=== PATIENT | female | born 1975 | race Two or more races ===

== ENCOUNTER → 2016-12-07 | Outpatient (CLI) | payer BC ==
--- NOTE | 2016-12-07 15:10 | US ---
EXAMINATION TYPE: US transvaginal DATE OF EXAM: 12/07/2016 3:00 PM COMPARISON: NONE CLINICAL HISTORY: N91.2 Amenorrhea. TECHNIQUE: Transvaginal (TV) Date of LMP: May 2016 TECHNOLOGIST IMPRESSION: 1. Uterus: Anteverted IUD visualized 2. Endometrium: wnl 3. Right Ovary: unable to visualized due to overlying bowel gas 4. Left Ovary: unable to visualized due to overlying bowel gas 5. Bilateral Adnexa: wnl 6. Posterior cul-de-sac: wnl IMPRESSION: 1. NORMAL PELVIC ULTRASOUND. 2. IUCD IN PLACE IN GOOD POSITION.
== END | disposition home or self-care (01) ==
LOC: RADUSWWP 14:31
PROVIDERS: ATTEND Obstetrics & Gynecology
DX: N91.2 Amenorrhea, unspecified (principal); Z97.5 Presence of (intrauterine) contraceptive device
CPT/HCPCS: 76830

== ENCOUNTER → 2018-05-08 | Outpatient (CLI) | payer BC ==
--- NOTE | 2018-05-15 16:48 | MM ---
Reason for exam: screening (asymptomatic). History: Family history of breast cancer in mother at age 67 and breast cancer in paternal grandmother. Patient had an excisional biopsy in 1990 right breast benign. MG 3D Screening Mammo W/Cad Bilateral CC and MLO view(s) were taken. Technologist: RT Giuliana (R)(M) The breast tissue is heterogeneously dense. This may lower the sensitivity of mammography. Bilateral multiple circumscribed masses compatible with a benign pattern. No significant changes when compared with prior studies. ASSESSMENT: Benign, BI-RAD 2 RECOMMENDATION: Routine screening mammogram of both breasts in 1 year.
== END | disposition home or self-care (01) ==
LOC: RADMAMWWP 14:24
PROVIDERS: ATTEND Family Medicine
DX: Z12.31 Encounter for screening mammogram for malignant neoplasm of breast (principal)
CPT/HCPCS: 77063; 77067

== ENCOUNTER → 2020-06-10 | Outpatient (CLI) | payer SELFPAY ==
--- NOTE | 2020-06-13 09:16 | MM ---
Reason for exam: screening (asymptomatic). Last mammogram was performed 2 years and 1 month ago. History: Patient is postmenopausal. Family history of breast cancer in mother at age 67 and breast cancer in paternal grandmother. Benign excisional biopsy of the right breast. Physical Findings: A clinical breast exam by your physician is recommended on an annual basis and results should be correlated with mammographic findings. MG 3D Screening Mammo W/Cad Bilateral CC and MLO view(s) were taken. Prior study comparison: May 08, 2018, bilateral MG 3d screening mammo w/cad. February 11, 2017, mammogram. January 18, 2017, mammogram. The breast tissue is heterogeneously dense. This may lower the sensitivity of mammography. Finding: There is a 20 mm circumscribed round mass located 6-7 cm from the nipple in the upper outer quadrant, posterior position of the right breast on MLO 24/58 and CC 26/55. There is a chronic nodularity in the right breast. There is no discrete abnormality. New finding and increase in size since May 08, 2018, February 11, 2017, and January 18, 2017. ASSESSMENT: Incomplete: need additional imaging evaluation, BI-RAD 0 RECOMMENDATION: Ultrasound of the right breast. [facility] will attempt to contact patient to return for ultrasound.
== END | disposition home or self-care (01) ==
LOC: RADMAMWWP 10:43
PROVIDERS: ATTEND Family Medicine
DX: Z12.31 Encounter for screening mammogram for malignant neoplasm of breast (principal)
CPT/HCPCS: 77063; 77067

== ENCOUNTER → 2020-06-27 | Outpatient (CLI) | payer SELFPAY ==
--- NOTE | 2020-06-27 08:37 | USB ---
Reason for exam: additional evaluation requested from abnormal screening. History: Patient is postmenopausal. Family history of breast cancer in mother at age 67 and breast cancer in paternal grandmother. Benign excisional biopsy of the right breast. Physical Findings: Nurse did not find any significant physical abnormalities on exam. US Breast Workup Limited RT Right limited breast ultrasound including focal area of concern, retroareolar and axilla demonstrates a 11 x 4mm oval, cystic lesion at 10 o'clock, a 17 x 6 x 20mm oval, cystic lesion at 10 o'clock and a 8mm oval lymph node at the axilla tail. These results were verbally communicated with the patient and result sheet given to the patient on 06/27/20. ASSESSMENT: Benign, BI-RAD 2 RECOMMENDATION: Return to routine screening mammogram schedule for both breasts.
== END | disposition home or self-care (01) ==
LOC: RADUSWWP 07:31
PROVIDERS: ATTEND Family Medicine
DX: R92.8 Other abnormal and inconclusive findings on diagnostic imaging of breast (principal)

== ENCOUNTER → 2022-04-04 | Outpatient (CLI) | payer BC ==
--- NOTE | 2022-04-05 08:56 | MM ---
Reason for Exam: Screening (asymptomatic). Last mammogram was performed 1 year(s) and 10 month(s) ago. Patient History: Menarche at age 12. First Full-Term at age 22. Postmenopausal. Benign Excisional Biopsy on the right side. Paternal grandmother had breast cancer. Mother had breast cancer, age 67. Risk Values: Moraima 5 year model risk: 2.1%. NCI Lifetime model risk: 18.2%. Prior Study Comparison: 02/11/2017 Screening Mammogram, Unknown. 05/08/2018 Bilateral Screening Mammogram, [facility]. 06/10/2020 Bilateral Screening Mammogram, [facility]. Tissue Density: The breast tissue is heterogeneously dense. This may lower the sensitivity of mammography. Findings: Analyzed By CAD. There is no suspicious group of microcalcifications or new suspicious mass in either breast. Overall Assessment: Negative, BI-RAD 1 Management: Screening Mammogram of both breasts in 1 year. A clinical breast exam by your physician is recommended on an annual basis and results should be correlated with mammographic findings. Electronically signed and approved by: Jairo Brady M.D. Radiologis
== END | disposition home or self-care (01) ==
LOC: RADMAMWWP 09:33
PROVIDERS: ATTEND Family Medicine
DX: Z12.31 Encounter for screening mammogram for malignant neoplasm of breast (principal)
CPT/HCPCS: 77063; 77067

== ENCOUNTER → 2023-04-16 | Outpatient (CLI) | payer BC ==
--- NOTE | 2023-04-17 19:06 | MM ---
Reason for Exam: Screening (asymptomatic). Last screening mammogram was performed 12 month(s) ago. Patient History: Menarche at age 12. First Full-Term at age 22. Postmenopausal. Benign Excisional Biopsy on the right side. Paternal grandmother had breast cancer. Mother had breast cancer, age 67. Risk Values: Moraima 5 year model risk: 2.0%. NCI Lifetime model risk: 17.9%. Prior Study Comparison: 05/08/2018 Bilateral Screening Mammogram, [facility]. 06/10/2020 Bilateral Screening Mammogram, [facility]. 04/04/2022 Bilateral MG 3D screening mammo w/cad, [facility]. Tissue Density: The breast tissue is heterogeneously dense. This may lower the sensitivity of mammography. Findings: Analyzed By CAD. Chronic nodularity on both sides. There is no suspicious group of microcalcifications or new suspicious mass in either breast. Overall Assessment: Benign, BI-RAD 2 Management: Screening Mammogram of both breasts in 1 year. . Patient should continue monthly self-breast exams. A clinical breast exam by your physician is recommended on an annual basis. This exam should not preclude additional follow-up of suspicious palpable abnormalities. Note on Moraima scores and lifetime risk: 1. A Moraima score greater than 3% is considered moderate risk. If this is the case, consider specialist referral to assess eligibility for a risk reducing agent. 2. If overall lifetime risk for the development of breast cancer is 20% or higher, the patient may qualify for future screening with alternating mammogram and breast MRI. Electronically signed and approved by: Britney Abdullahi M.D. Radiologist
== END | disposition home or self-care (01) ==
LOC: RADMAMWWP 14:24
PROVIDERS: ATTEND Family Medicine
DX: Z12.31 Encounter for screening mammogram for malignant neoplasm of breast (principal); Z80.3 Family history of malignant neoplasm of breast; Z78.0 Asymptomatic menopausal state
CPT/HCPCS: 77063; 77067

== ENCOUNTER → 2025-03-12 | Outpatient (CLI) | payer BC ==
--- NOTE | 2025-03-12 07:48 | MM ---
Reason for Exam: Screening (asymptomatic). Last mammogram was performed 1 year(s) and 11 month(s) ago. Patient History: Menarche at age 12. First Full-Term at age 22. Postmenopausal. Benign Excisional Biopsy on the right side. Paternal grandmother had breast cancer. Mother had breast cancer, age 67. Risk Values: Moraima 5 year model risk: 2.1%. NCI Lifetime model risk: 17.3%. Prior Study Comparison: 06/10/2020 Bilateral Screening Mammogram, [facility]. 04/04/2022 Bilateral MG 3D screening mammo w/cad, [facility]. 04/16/2023 Bilateral MG 3D screening mammo w/cad, [facility]. Tissue Density: The breasts are heterogeneously dense, which may obscure small masses. Findings: Analyzed By CAD. There are bilateral areas of nodular density including the upper outer left breast, lower inner left breast and upper outer right breast for which spot compression recommended. Overall Assessment: Incomplete: need additional imaging evaluation, BI-RAD 0 Management: Special View Mammogram of both breasts. . Patient should continue monthly self-breast exams. A clinical breast exam by your physician is recommended on an annual basis. This exam should not preclude additional follow-up of suspicious palpable abnormalities. Note on Moraima scores and lifetime risk: 1. A Moraima score greater than 3% is considered moderate risk. If this is the case, consider specialist referral to assess eligibility for a risk reducing agent. 2. If overall lifetime risk for the development of breast cancer is 20% or higher, the patient may qualify for future screening with alternating mammogram and breast MRI. [facility], , 03/12/2025 7:44 AM. Electronically signed and approved by: Ciaran Rosales M.D. Radiologis
== END | disposition home or self-care (01) ==
LOC: RADMAMWWP 07:11
PROVIDERS: ATTEND Family Medicine
DX: Z12.31 Encounter for screening mammogram for malignant neoplasm of breast (principal); R92.333 Mammographic heterogeneous density, bilateral breasts; Z78.0 Asymptomatic menopausal state; Z80.3 Family history of malignant neoplasm of breast
CPT/HCPCS: 77063; 77067

== ENCOUNTER → 2025-03-19 | Outpatient (CLI) | payer BC ==
--- NOTE | 2025-03-19 13:42 | USB ---
Reason for Exam: Additional evaluation requested from abnormal screening. Patient History: Menarche at age 12. First Full-Term at age 22. Postmenopausal. Benign Excisional Biopsy on the right side. Paternal grandmother had breast cancer. Mother had breast cancer, age 67. Risk Values: Moraima 5 year model risk: 2.1%. NCI Lifetime model risk: 17.3%. Technique: Method: Targeted. Prior Study Comparison: 04/04/2022 Bilateral MG 3D screening mammo w/cad, [facility]. 04/16/2023 Bilateral MG 3D screening mammo w/cad, [facility]. 03/12/2025 Bilateral MG 3D screening mammo w/cad, [facility]. Findings: The upper outer quadrant of the left breast, the upper section of the breast of the right breast, the lower inner quadrant of the left breast, the axilla of both breasts and the retroareolar of both breasts were scanned. Right: Targeted ultrasound upper outer quadrant 9:00 to 12:00 including scanning of the subareolar region and axilla. At 9:00, 6 cm from the nipple, there is a cluster of 3 small cysts measuring up to 4 mm, mammographic correlate. At 10:00, 6 cm from the nipple, there is an additional debris-filled cyst measuring 4 mm. No other solid or cystic lesion or axillary adenopathy. Left: Targeted ultrasound upper outer quadrant 12:00 to 3:00 as well as the lower inner quadrant 6:00 to 9:00. At 1:00, 2 cm from the nipple, there is a benign 6 cm cyst with some minimal internal debris. At 2:00, 6 cm from the nipple, there is a bilobed benign 7 mm cyst. At 7:00, 7 cm from the nipple, there is a tiny bilobed cyst measuring 5 mm and containing some minimal internal debris. No other solid or cystic lesion or axillary adenopathy. Recommend 6 month follow-up bilateral breast ultrasounds or fluctuating nodularity likely due to the underlying cysts. Overall Assessment: Probably benign, BI-RAD 3 Management: Diagnostic Mammogram of both breasts in 6 months. A clinical breast exam by your physician is recommended on an annual basis and results should be correlated with mammographic findings. This exam should not preclude additional follow-up of suspicious palpable abnormalities. Results were given to the patient verbally at the time of exam. [facility], , 03/19/2025 1:39 PM. Electronically signed and approved by: Britney Abdullahi M.D. Radiologist
--- NOTE | 2025-03-19 13:44 | MM ---
Reason for Exam: Additional evaluation requested from abnormal screening. Last screening mammogram was performed less than 1 month ago. Patient History: Menarche at age 12. First Full-Term at age 22. Postmenopausal. Benign Excisional Biopsy on the right side. Paternal grandmother had breast cancer. Mother had breast cancer, age 67. Risk Values: Moraima 5 year model risk: 2.1%. NCI Lifetime model risk: 17.3%. Prior Study Comparison: 04/16/2023 Bilateral MG 3D screening mammo w/cad, [facility]. 03/12/2025 Bilateral MG 3D screening mammo w/cad, [facility]. Tissue Density: There are scattered areas of fibroglandular density. Findings: Analyzed By CAD. Persistent circumscribed isodense to low density nodularity measuring up to 4 mm in the upper outer quadrant of the right breast. Additional fluctuating nodularity upper outer quadrant and lower inner quadrant left breast also persists. Further ultrasound evaluation is recommended. Overall Assessment: Incomplete: need additional imaging evaluation, BI-RAD 0 Management: Diagnostic Breast Ultrasound of both breasts. [facility], , 03/19/2025 1:41 PM. Electronically signed and approved by: Britney Abdullahi M.D. Radiologist
== END | disposition home or self-care (01) ==
LOC: RADMAMWWP 12:36
PROVIDERS: ATTEND Family Medicine
DX: R92.8 Other abnormal and inconclusive findings on diagnostic imaging of breast (principal); R92.323 Mammographic fibroglandular density, bilateral breasts; Z78.0 Asymptomatic menopausal state; Z80.3 Family history of malignant neoplasm of breast
CPT/HCPCS: 77062; 77066